=== PATIENT | female | born 1980 | race Caucasian/White ===

== ENCOUNTER 2017-11-27 21:40 | Emergency (ER) | payer OTHER ==
[~2017-11-27] VITALS: Ht 165.1 cm; Wt 158.8 kg
[2017-11-27 22:00] VITALS: BP 140/76
--- NOTE | 2017-11-27 23:03 | NUR ---
PT AMB WITH SLIGHT LIMP NOTED TO ER BED 1. PT AAOX4 AT THIS TIME
--- NOTE | 2017-11-27 23:11 | NUR ---
PATIENT PRESENTS TO ED WITH FIRST OCCURRENCE SOB WHILE AT WORK X 1 HOUR, CALLED EMS PT DENIES N/V/D; SKIN IS PINK/WARM/DRY; AAOX4; LUNGS CLEAR BL; HR EVEN AND REGULAR; PT DENIES ANY FEVER, CP, SOB, OR COUGH AT THIS TIME; PATIENT STATES PAIN OF 4/10 AT THIS TIME; VSS; PATIENT POSITIONED FOR COMFORT; HOB ELEVATED; BEDRAILS UP X2; BED DOWN. ER MD MADE AWARE OF PT STATUS.
[2017-11-28 00:17] VITALS: BP 140/76
== END 2017-11-28 00:17 | disposition home or self-care (01) ==
LOC: MED 21:40
DX: F41.0 Panic disorder [episodic paroxysmal anxiety] (principal); I10 Essential (primary) hypertension
CPT/HCPCS: 71045; 81002; 81025; 99283

== ENCOUNTER 2018-02-21 08:06 | Emergency (ER) | payer OTHER ==
[~2018-02-21] VITALS: Ht 165.1 cm; Wt 156.7 kg
[2018-02-21 08:13] VITALS: BP 141/77
--- NOTE | 2018-02-21 08:19 | NUR ---
PT AMBUALTED TO ER BED 05
--- NOTE | 2018-02-21 08:20 | NUR ---
REPORT GIVEN TO JOY VILLALBA
--- NOTE | 2018-02-21 08:30 | NUR ---
37F BIB SELF WITH C/O INTERCHANGING THROBBING/SHARP HEAD ACHE X 1 WK, LT EVANGELICAL PAIN X 3 DAYS, DIARRHEA X 3 DAYS, FATIGUE; DENIES N/V; HAS BEEN TAKING TYLENOL X 1 WK WITH NO RELIEF; LAST TYLENOL 1 HOUR PRIOR TO ARRIVALSKIN IS COLOR APPRIOPRIATE FOR ETHNICITY/WARM/DRY; AOX4 WITH EVEN AND STEADY GAIT; VSS; PATIENT POSITIONED FOR COMFORT; HOB ELEVATED; BEDRAILS UP X2; BED DOWN. ER MD MADE AWARE OF PT STATUS.
[2018-02-21 09:00] VITALS: BP 142/78
--- NOTE | 2018-02-21 09:00 | NUR ---
patient denies any chest pain, dizziness, or vision changes.
== END 2018-02-21 09:00 | disposition home or self-care (01) ==
LOC: MED 08:06
DX: R51 Headache (principal); I10 Essential (primary) hypertension
CPT/HCPCS: 81002; 99282; 99283

== ENCOUNTER 2018-04-02 21:25 | Emergency (ER) | payer OTHER ==
[~2018-04-02] VITALS: Ht 165.1 cm; Wt 140.6 kg
[2018-04-02 21:25] VITALS: BP 148/107
[2018-04-02] MEDS: ONDANSETRON 4 MG/2 ML VIAL IVP ONE (22:22)
[2018-04-02] MEDS: NACL 0.9% 2,000 ML IV ONE (22:23)
[2018-04-02 22:56] LABS: BASOPHILS % (AUTO) 0.1 % (0.0-2.0); EOSINOPHILS # (AUTO) 0.1 K/uL (0-0.4); EOSINOPHILS % (AUTO) 0.9 % (0.0-4.0); HEMATOCRIT 40.3 % (36-48); HEMOGLOBIN 12.9 g/dL (12.0-16.0); LYMPHOCYTES # (AUTO) 2.5 K/uL (2.5-16.5); LYMPHOCYTES % (AUTO) 19.7 % (20.5-51.1); MEAN CORPUSCULAR HEMOGLOBIN 25 pg (27-31); MEAN CORPUSCULAR HGB CONC 32 g/dL (33-37); MEAN CORPUSCULAR VOLUME 79.1 fL (80-94); MONOCYTES # (AUTO) 0.6 K/uL (0.8-1.0); MONOCYTES % (AUTO) 4.5 % (1.7-9.3); NEUTROPHILS # (AUTO) 9.3 K/uL (1.8-7.7); NEUTROPHILS % (AUTO) 74.8 % (42.2-75.2); PLATELET COUNT (AUTO) 335 K/uL (140-450); RED CELL DISTRIBUTION WIDTH 15.6 % (11.6-13.7); WHITE BLOOD COUNT (AUTO) 12.5 K/uL (4.8-10.8)
[2018-04-02 23:19] LABS: CARBON DIOXIDE 24.6 mmol/L (21-32); CREATININE 0.8 mg/dL (0.6-1.3); POTASSIUM 3.6 mmol/L (3.5-5.1); TOTAL BILIRUBIN 0.3 mg/dL (0.0-1.0)
[2018-04-02 23:33] LABS: APPEARANCE,URINE CLEAR (CLEAR); BILIRUBIN,URINE NEGATIVE (NEGATIVE); BLOOD, URINE NEGATIVE (NEGATIVE); COLOR,URINE YELLOW (YELLOW); LEUKOCYTE ESTERASE ,URINE NEGATIVE (NEGATIVE); NITRITE, URINE NEGATIVE (NEGATIVE); PH,URINE 5.5 (5.0-9.0); UGLUCOSE NEGATIVE (NEGATIVE)
[2018-04-02 23:47] LABS: RBC,URINE 0-5 (RARE) /HPF (0-5); WBC,URINE 0-5 (RARE) /HPF (0-5)
[2018-04-02] MEDS ORDERED: ACETAMINOPHEN 325 MG TAB ONE (23:47)
[2018-04-02] MEDS: ACETAMINOPHEN 325 MG TAB PO ONE (23:53)
[2018-04-03 00:06] VITALS: BP 128/71
== END 2018-04-03 00:06 | disposition home or self-care (01) ==
LOC: MED 21:25
DX: E86.0 Dehydration (principal); R53.1 Weakness; I51.89 Other ill-defined heart diseases
CPT/HCPCS: 36415; 80053; 81001; 81025; 82550; 85025; 96361; 96374; 99285; J2405; J7030

== ENCOUNTER 2018-11-08 01:23 | Emergency (ER) | payer OTHER ==
[~2018-11-08] VITALS: Ht 165.1 cm; Wt 154.2 kg
[2018-11-08 01:25] VITALS: BP 143/86
--- NOTE | 2018-11-08 01:25 | NUR ---
TO BED # 4 AMBULATORY, REPORT GIVEN TO FRANCOIS HAMILTON
[2018-11-08] MEDS ORDERED: LIDOCAINE 2% 1000 MG/50 ML VIAL INJ ONE (01:40)
--- NOTE | 2018-11-08 01:42 | NUR ---
PT TO ED WITH C/O SAGE IN LEFT EAR X 2 HRS. DENIES HEARING LOSS. PT DENIES PAIN AT THIS TIME. UPON ASSESSMENT, MOVING BUG SEEN IN LEFT EAR CANAL. PT PLACED INTO BED, PENDING MD BEST.
[2018-11-08] MEDS ORDERED: LIDOCAINE VISCOUS 2% 20 ML UDC PO ONE (02:05)
[2018-11-08] MEDS ORDERED: LIDOCAINE VISCOUS 2% 20 ML UDC ONE (02:14)
[2018-11-08 03:08] VITALS: BP 141/79
--- NOTE | 2018-11-08 03:08 | NUR ---
Patient discharged with v/s stable. Written and verbal after care instructions given and explained. Patient alert, oriented and verbalized understanding of instructions. Ambulatory with steady gait. All questions addressed prior to discharge. ID band removed. Patient advised to follow up with PMD. Rx of AURALGAN given. Patient educated on indication of medication including possible reaction and side effects. Opportunity to ask questions provided and answered.
== END 2018-11-08 03:09 | disposition home or self-care (01) ==
LOC: MED 01:23
DX: T16.1XXA Foreign body in right ear, initial encounter (principal); R42 Dizziness and giddiness; X58.XXXA Exposure to other specified factors, initial encounter; Y93.89 Activity, other specified; Y92.89 Other specified places as the place of occurrence of the external cause; Y99.8 Other external cause status
CPT/HCPCS: 69200; 99284; J2001

== ENCOUNTER 2019-01-16 15:39 | Emergency (ER) | payer OTHER ==
[~2019-01-16] VITALS: Ht 167.6 cm; Wt 104.3 kg
--- NOTE | 2019-01-16 16:15 | NUR ---
ERMD AT BEDSIDE
[2019-01-16 16:17] VITALS: BP 145/122
[2019-01-16 16:39] LABS: APPEARANCE,URINE CLEAR (CLEAR); BILIRUBIN,URINE NEGATIVE (NEGATIVE); BLOOD, URINE NEGATIVE (NEGATIVE); COLOR,URINE YELLOW (YELLOW); NITRITE, URINE NEGATIVE (NEGATIVE); PH,URINE 6.5 (5.0-9.0); UGLUCOSE NEGATIVE (NEGATIVE)
[2019-01-16 16:43] LABS: LEUKOCYTE ESTERASE ,URINE NEGATIVE (NEGATIVE)
--- NOTE | 2019-01-16 16:43 | NUR ---
PT AMBULATED TO BED 07.
[2019-01-16 16:58] LABS: BASOPHILS % (AUTO) 0.3 % (0.0-2.0); EOSINOPHILS # (AUTO) 0.2 K/uL (0-0.4); EOSINOPHILS % (AUTO) 1.4 % (0.0-4.0); HEMATOCRIT 40.3 % (36-48); LYMPHOCYTES # (AUTO) 1.9 K/uL (2.5-16.5); LYMPHOCYTES % (AUTO) 16.6 % (20.5-51.1); MEAN CORPUSCULAR HEMOGLOBIN 27 pg (27-31); MEAN CORPUSCULAR HGB CONC 32 g/dL (33-37); MEAN CORPUSCULAR VOLUME 81.8 fL (80-94); MONOCYTES # (AUTO) 0.6 K/uL (0.8-1.0); MONOCYTES % (AUTO) 4.9 % (1.7-9.3); NEUTROPHILS # (AUTO) 8.8 K/uL (1.8-7.7); NEUTROPHILS % (AUTO) 76.8 % (42.2-75.2); PLATELET COUNT (AUTO) 330 K/uL (140-450); RED BLOOD CELL COUNT(AUTO) 4.93 MIL/uL (4.20-5.40); RED CELL DISTRIBUTION WIDTH 15.2 % (11.6-13.7); WHITE BLOOD COUNT (AUTO) 11.4 K/uL (4.8-10.8)
--- NOTE | 2019-01-16 17:00 | NUR ---
C/O BLE SWELLING X 1 DAY. NON PITTING, PT STATES 0/10 PAIN. PT WENT TO URGENT CARE AND WAS REFERRED TO THE ED FROM THERE. PT DENIES ANY MEDICAL HISTORY.DENIES N/V/D; AAOX4 WITH EVEN AND STEADY GAIT; LUNGS CLEAR BL; HR EVEN AND REGULAR; PT DENIES ANY FEVER, CP, SOB, OR COUGH AT THIS TIME; PATIENT STATES PAIN OF 0/10 AT THIS TIME; VSS; PATIENT POSITIONED FOR COMFORT; HOB ELEVATED; BEDRAILS UP X1; BED DOWN. ER MD MADE AWARE OF PT STATUS.
[2019-01-16 17:09] LABS: ANION GAP 11.1 (8-16); CARBON DIOXIDE 28.7 mmol/L (21-32); CREATININE 0.8 mg/dL (0.6-1.3); POTASSIUM 3.8 mmol/L (3.5-5.1)
[2019-01-16 17:12] LABS: PROTHROMBIN TIME 10.9 secs (10.8-13.4)
[2019-01-16 17:15] LABS: ALBUMIN 3.4 g/dL (3.4-5.0); TOTAL BILIRUBIN 0.3 mg/dL (0.0-1.0)
--- NOTE | 2019-01-16 18:35 | NUR ---
Patient discharged with v/s stable. Written and verbal after care instructions given and explained. Patient alert, oriented and verbalized understanding of instructions. Ambulatory with steady gait. All questions addressed prior to discharge. ID band removed. Patient advised to follow up with PMD. Rx of LASIX & FIORICET given. Patient educated on indication of medication including possible reaction and side effects. Opportunity to ask questions provided and answered.
[2019-01-16 18:46] VITALS: BP 149/101
== END 2019-01-16 18:35 | disposition home or self-care (01) ==
LOC: MED 15:39
DX: R60.0 Localized edema (principal)
CPT/HCPCS: 36415; 71045; 80053; 81003; 81025; 83880; 85025; 85610; 99284

== ENCOUNTER 2019-05-24 10:48 | Emergency (ER) | payer SELFPAY ==
[~2019-05-24] VITALS: Ht 167.6 cm; Wt 138.8 kg
[2019-05-24 10:56] VITALS: BP 130/78
--- NOTE | 2019-05-24 11:04 | NUR ---
PT AMBULATES BACK TO THE LOBBY
--- NOTE | 2019-05-24 11:06 | NUR ---
Patient ambulated to chair E. RN evaluating patient.
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
--- NOTE | 2019-05-24 11:38 | NUR ---
PT MOVED TO BED 12
--- NOTE | 2019-05-24 11:52 | NUR ---
DR NEUMANN AT BEDSIDE
--- NOTE | 2019-05-24 12:18 | NUR ---
PATIENT ELOPED FROM FACILITY. DISCHARGE INSTRUCTIONS NOT GIVEN TO PATIENT. DR. NEUMANN NOTIFIED.
== END 2019-05-24 12:18 | disposition home or self-care (01) ==
LOC: MED 10:48
DX: M54.5 Low back pain (principal); L98.498 Non-pressure chronic ulcer of skin of other sites with other specified severity
CPT/HCPCS: 81002; 99282

== ENCOUNTER 2021-01-05 07:33 | Emergency (ER) | payer SELFPAY ==
[~2021-01-05] VITALS: Ht 167.6 cm; Wt 161.0 kg
[2021-01-05 07:39] VITALS: BP 148/100
--- NOTE | 2021-01-05 07:45 | NUR ---
PT WAS ABLE TO AMBULATE TO BED 9 @ 0746
--- NOTE | 2021-01-05 07:58 | NUR ---
40 Y/O F BIB SELF FROM WORK, PATIENT PRESENTS TO ED WITH SORE THROAT SINCE 01/01/21, DENIES SOB, CHEST PAIN, OR FEVERS. PT STATES SHE HAS TONSILITIS, UPON INSPECTION PT HAS VISIBLE REDNESS AND SWELLING ON BOTH TONSILS. PT STATES SHE HAS DIFFICULTY SWALLOWING AND BREATHING LAYING DOWN. DENIES N/V/D; SKIN IS PINK/WARM/DRY; AAOX4 WITH EVEN AND STEADY GAIT; LUNGS CLEAR BL; HR EVEN AND REGULAR; PATIENT STATES PAIN OF 10/10 AT THIS TIME; VSS; PATIENT POSITIONED FOR COMFORT; HOB ELEVATED; BEDRAILS UP X2; BED DOWN. ER MADE AWARE OF PT STATUS. LMP: 12/20/20. PMH: NONE NKA MEDS: LAST DOSE DAYQUIL 01/05/21 0400
--- NOTE | 2021-01-05 08:18 | NUR ---
Patient being evaluated by Dr. Chapin at bedside.
[2021-01-05] MEDS ORDERED: AMOXIL/CLAVULANATE 875/125 MG 1 TAB PO ONE (08:25)
[2021-01-05] MEDS ORDERED: KETOROLAC 30 MG/ML VIAL IM ONE (08:25)
[2021-01-05] MEDS ORDERED: LIDOCAINE VISCOUS 2% 20 ML UDC PO ONE (08:25)
[2021-01-05] MEDS ORDERED: IBUP-2213 PO (09:17)
[2021-01-05] MEDS ORDERED: PRED20TA5 PO (09:17)
[2021-01-05] MEDS ORDERED: AMOX-1000 PO (09:17)
[2021-01-05 09:30] VITALS: BP 130/71
--- NOTE | 2021-01-05 09:30 | NUR ---
Patient discharged with v/s stable. Written and verbal after care instructions given and explained. Patient alert, oriented and verbalized understanding of instructions. Ambulatory with steady gait. All questions addressed prior to discharge. ID band removed. Patient advised to follow up with PMD. Rx of Amoxcilin/Potassium Clav (Augmentin 875-125), Ibuprofen, Prednisone given. Patient educated on indication of medication including possible reaction and side effects. Opportunity to ask questions provided and answered.
== END 2021-01-05 09:30 | disposition home or self-care (01) ==
LOC: MED 07:33
DX: J03.80 Acute tonsillitis due to other specified organisms (principal); Z79.899 Other long term (current) drug therapy
CPT/HCPCS: 96372; 99284; J1885

== ENCOUNTER 2022-03-27 05:52 | Emergency (ER) | payer OTHER ==
[~2022-03-27] VITALS: Ht 165.1 cm; Wt 158.8 kg
[~2022-03-27 05:52] MED LIST: AMOX-1000 PO; IBUP-2213 PO; PRED20TA5 PO
[2022-03-27 06:04] VITALS: BP 138/95
--- NOTE | 2022-03-27 06:09 | NUR ---
Patient taken to bed 12 via wheel chair.
--- NOTE | 2022-03-27 06:21 | NUR ---
Dr. Cheng examining patient.
[2022-03-27] MEDS ORDERED: KETOROLAC 60 MG/2 ML VIAL IM ONE (06:30)
--- NOTE | 2022-03-27 06:34 | NUR ---
X-Ray at bedside.
--- NOTE | 2022-03-27 06:40 | NUR ---
XRAY AT BEDSIDE
--- NOTE | 2022-03-27 06:44 | NUR ---
pPT REFUSES PAIN MEDICATION
--- NOTE | 2022-03-27 07:15 | NUR ---
RECEIVED REPORT FROM DEANGELO HAMILTON, TRANSFER OF CARE AT THIS TIME, RECEIVED PATIENT ASLEEP ON THEIR LEFT SIDE
--- NOTE | 2022-03-27 08:03 | NUR ---
PT STOOD UP AND ATTEMPTED TO WALK. PT STATED SHE CAN NOT BEAR WEIGHT ON R LEG. PT UNSTEADY WHEN STOOD UP FROM BED.
--- NOTE | 2022-03-27 08:33 | NUR ---
PT RETURN FROM CT
[2022-03-27 08:48] VITALS: BP 122/85
--- NOTE | 2022-03-27 09:12 | NUR ---
DR MARINELLI AT BEDSIDE
[2022-03-27] MEDS ORDERED: IBUP-2213 PO (09:14)
--- NOTE | 2022-03-27 09:24 | NUR ---
Patient discharged with v/s stable. Written and verbal after care instructions given and explained. Patient alert, oriented and verbalized understanding of instructions. Wheel Chair Assisted with to car. All questions addressed prior to discharge. ID band removed. Patient advised to follow up with PMD. Rx of MOTRIN given. Patient educated on indication of medication including possible reaction and side effects. Opportunity to ask questions provided and answered.
== END 2022-03-27 09:24 | disposition home or self-care (01) ==
LOC: MED 05:52
DX: S83.91XA Sprain of unspecified site of right knee, initial encounter (principal); E66.01 Morbid (severe) obesity due to excess calories; W18.30XA Fall on same level, unspecified, initial encounter; Y93.89 Activity, other specified; Y92.89 Other specified places as the place of occurrence of the external cause; Y99.8 Other external cause status
CPT/HCPCS: 73562; 73700; 99284; J1885; Q0092